=== PATIENT | male | born 1950 | race African-American/Black ===

== ENCOUNTER 2017-11-09 08:57 | Emergency (ER) | payer SELFPAY ==
[~2017-11-09] VITALS: Ht 170.2 cm; Wt 126.7 kg
[~2017-11-09 08:57] MED LIST: GABAPENTIN300 MG PO; HYDROCHLOROTH12.5 M3 PO; MICROZIDE12.5 M1 PO; NOVOLOG MI100 UNIT/4 SC; OXYCODONE HCL15 MG PO
[2017-11-09 09:21] LABS: BASOPHIL (%) 0.8 % (0-1); EOSINOPHIL (%) 7.2 % (0-5); EOSINOPHIL COUNT 0.4 K/uL (0-0.3); HEMATOCRIT 38.7 % (38.0-50.0); HEMOGLOBIN 13.1 G/DL (12.5-16.6); IMMATURE GRANULOCYTE (%) 0.2 % (0.0-0.7); LYMPHOCYTE (%) 35.1 % (15-42); LYMPHOCYTE COUNT 1.8 K/uL (1.0-2.8); MCH 27.1 PG (29.0-34.0); MCHC 33.9 G/DL (30.0-36.0); MONOCYTE (%) 10.4 % (3-12); MONOCYTE COUNT 0.5 K/uL (0-0.8); NEUTROPHIL (%) 46.3 % (45-76); NEUTROPHIL COUNT 2.3 K/uL (1.8-6.4); PLATELET COUNT 213 K/uL (156-360); RBC DIS.WIDTH-CV 14.2 % (11.8-14.6); RBC DIS.WIDTH-SD 41.2 % (39-53); RED BLOOD COUNT 4.84 M/uL (4.00-5.50)
[2017-11-09 09:29] LABS: CHLORIDE 105 mEq/L (99-109); POTASSIUM 4.3 mEq/L (3.7-5.4); SODIUM 135 mEq/L (136-147)
[2017-11-09 09:31] LABS: GLUCOSE 121 mg/dL (70-99)
[2017-11-09 09:35] LABS: CREATININE 0.9 mg/dL (0.6-1.3); GFR ESTIMATE (CALCULATED) > 59 mL/min/ (58.99-99999)
[2017-11-09 09:36] LABS: UREA NITROGEN (BUN) 13 mg/dL (9-23)
[2017-11-09 10:07] LABS: SOURCE URINE
[2017-11-09 10:19] LABS: APPEARANCE CLEAR ((CLEAR)); BILIRUBIN NEGATIVE; BLOOD SMALL; COLOR STRAW ((YELLOW)); GLUCOSE (STRIP) NEGATIVE; KETONES NEGATIVE; LEUKOCYTES NEGATIVE; NITRITE NEGATIVE; PROTEIN (STRIP) 30; SPECIFIC GRAVITY 1.008 (1.000-1.030); UROBILINOGEN 0.2 MG/DL (0.2-1.0)
[2017-11-09 10:37] LABS: BACTERIA NONE SEEN /HPF; EPITHELIAL CELLS NONE SEEN /HPF; MUCUS NONE SEEN /LPF; RED BLOOD CELLS 0-5 /HPF (0-5); UCUL ADDED? NO; WHITE BLOOD CELLS 0-5 /HPF (0-5)
[2017-11-09 11:15] VITALS: BP 176/78
[2017-11-10 15:21] LABS: CHLAMYDIA TRACHOMATIS NEGATIVE; NEISSERIA GONORRHOEAE NEGATIVE
== END 2017-11-09 11:15 | disposition home or self-care (01) ==
LOC: EME 08:57
PROVIDERS: Emergency Medicine
DX: N34.1 Nonspecific urethritis (principal); A64 Unspecified sexually transmitted disease; I10 Essential (primary) hypertension; E11.9 Type 2 diabetes mellitus without complications; Z79.4 Long term (current) use of insulin; F17.200 Nicotine dependence, unspecified, uncomplicated; Z88.0 Allergy status to penicillin
CPT/HCPCS: 80048; 81003; 85025; 87491; 87591; 99281; 99284; J0696